=== PATIENT | female | born 1985 | race Caucasian/White ===

== ENCOUNTER 2016-12-10 12:53 | Emergency (ER) | payer OTHER ==
[~2016-12-10] VITALS: Ht 160 cm; Wt 102.9 kg
[~2016-12-10 12:53] MED LIST: AMPHETAMINE SAL20 MG PO; BACTRIM,SEPT1 TABLE1 PO; FLUOXETINE HCL20 M1 PO; FLUOXETINE HCL20 MG PO; FLUOXETINE HCL60 MG PO
[2016-12-10 14:48] LABS: ADD MIUA? NO; BILIRUBIN NEGATIVE; BLOOD NEGATIVE; COLOR YELLOW ((YELLOW)); GLUCOSE (STRIP) NEGATIVE; KETONES NEGATIVE; LEUKOCYTES NEGATIVE; NITRITE NEGATIVE; PROTEIN (STRIP) NEGATIVE; SPECIFIC GRAVITY 1.017 (1.000-1.030); UCUL ADDED? NO; UROBILINOGEN 0.2 MG/DL (0.2-1.0)
[2016-12-10 14:55] LABS: HEMATOCRIT 39.6 % (36.0-46.0); MCH 28.8 PG (29.0-34.0); MCHC 33.1 G/DL (30.0-36.0); MEAN PLAT.VOLUME 9.1 uM^3 (9.5-12.4); PLATELET COUNT 388 K/uL (156-360); RBC DIS.WIDTH-CV 13.1 % (11.8-14.6); RBC DIS.WIDTH-SD 40.9 % (39-53); RED BLOOD COUNT 4.55 M/uL (3.80-5.20); WHITE BLOOD COUNT 7.8 K/uL (4.1-10.2)
[2016-12-10 15:57] LABS: CHLORIDE 103 mEq/L (99-109); POTASSIUM 4.3 mEq/L (3.7-5.4); SODIUM 137 mEq/L (136-147)
[2016-12-10 15:59] LABS: GLUCOSE 87 mg/dL (70-99)
[2016-12-10 16:00] LABS: ANION GAP 7 MEQ/L (2-14)
[2016-12-10 16:01] LABS: TOTAL BILIRUBIN 0.3 mg/dL (0.0-1.0)
[2016-12-10 16:02] LABS: ALKALINE PHOSPHATASE 56 IU/L (3-129)
[2016-12-10 16:03] LABS: GFR ESTIMATE (CALCULATED) > 59 mL/min/
[2016-12-10 16:04] LABS: UREA NITROGEN (BUN) 11 mg/dL (9-23)
[2016-12-10 16:06] LABS: LIPASE 23 U/L (1.0-51.0)
[2016-12-10 16:12] LABS: QUANTITATIVE HCG < 4.0 MIU/ML
[2016-12-10] MEDS ORDERED: OMEPRAZOLE40 M1 PO (16:30)
[2016-12-10] MEDS ORDERED: ZOFRAN ODT4 MG PO (16:35)
[2016-12-10 16:42] VITALS: BP 137/93
== END 2016-12-10 16:43 | disposition home or self-care (01) ==
LOC: EME 12:53
DX: R10.11 Right upper quadrant pain (principal); F31.9 Bipolar disorder, unspecified; F41.9 Anxiety disorder, unspecified
CPT/HCPCS: 71020; 76705; 80053; 81003; 83690; 84702; 85027; 99281; 99283

== ENCOUNTER 2017-05-08 04:46 | Emergency (ER) | payer OTHER ==
[~2017-05-08] VITALS: Ht 165.1 cm; Wt 102.2 kg
[~2017-05-08 04:46] MED LIST changes: +OMEPRAZOLE40 M1 PO; +ZOFRAN ODT4 MG PO
[2017-05-08] MEDS ORDERED: PERCOCET 5/31 TABLET PO (05:19)
[2017-05-08] MEDS ORDERED: PEN-VEE K,VEET500 MG PO (05:23)
[2017-05-08 05:52] VITALS: BP 00/00
== END 2017-05-08 05:56 | disposition home or self-care (01) ==
LOC: EME 04:46
PROC: 3E0T3BZ Introduction of Anesthetic Agent into Peripheral Nerves and Plexi, Percutaneous Approach (ICD-10-PCS; principal; 2017-05-08)
DX: K08.89 Other specified disorders of teeth and supporting structures (principal); F41.9 Anxiety disorder, unspecified; F32.9 Major depressive disorder, single episode, unspecified; F31.9 Bipolar disorder, unspecified

== ENCOUNTER 2017-06-16 22:34 | Emergency (ER) | payer OTHER ==
[~2017-06-16] VITALS: Ht 162.6 cm; Wt 100.8 kg
[~2017-06-16 22:34] MED LIST changes: +PEN-VEE K,VEET500 MG PO; +PERCOCET 5/31 TABLET PO
[2017-06-16 23:04] LABS: HEMATOCRIT 42.1 % (36.0-46.0); HEMOGLOBIN 14.4 G/DL (11.9-15.5); MCH 29.6 PG (29.0-34.0); MCHC 34.2 G/DL (30.0-36.0); MCV 86.6 FL (83-99); PLATELET COUNT 496 K/uL (156-360); RBC DIS.WIDTH-CV 12.9 % (11.8-14.6); RBC DIS.WIDTH-SD 40.3 % (39-53); RED BLOOD COUNT 4.86 M/uL (3.80-5.20); WHITE BLOOD COUNT 13.9 K/uL (4.1-10.2)
[2017-06-16 23:13] LABS: ALBUMIN 4.2 g/dL (3.2-4.8); CHLORIDE 105 mEq/L (99-109); POTASSIUM 4.2 mEq/L (3.7-5.4); SODIUM 137 mEq/L (136-147)
[2017-06-16 23:16] LABS: GLUCOSE 93 mg/dL (70-99); TOTAL PROTEIN 7.9 g/dL (6.4-8.3)
[2017-06-16 23:18] LABS: TOTAL BILIRUBIN 0.2 mg/dL (0.0-1.0)
[2017-06-16 23:19] LABS: ALKALINE PHOSPHATASE 66 IU/L (3-129); CREATININE 0.7 mg/dL (0.6-1.3); GFR ESTIMATE (CALCULATED) > 59 mL/min/
[2017-06-16 23:20] LABS: UREA NITROGEN (BUN) 12 mg/dL (9-23)
[2017-06-16 23:21] LABS: AST (GOT) 14 IU/L (2-34)
[2017-06-16 23:22] LABS: ALT (GPT) 15 IU/L (3-49)
[2017-06-16 23:29] LABS: QUANTITATIVE HCG < 4.0 MIU/ML
[2017-06-17 00:42] LABS: APPEARANCE CLEAR ((CLEAR)); BILIRUBIN NEGATIVE; BLOOD NEGATIVE; COLOR YELLOW ((YELLOW)); GLUCOSE (STRIP) NEGATIVE; KETONES NEGATIVE; LEUKOCYTES NEGATIVE; NITRITE NEGATIVE; PROTEIN (STRIP) NEGATIVE; SPECIFIC GRAVITY 1.026 (1.000-1.030); UCUL ADDED? NO; UROBILINOGEN 0.2 MG/DL (0.2-1.0)
[2017-06-17 00:50] LABS: DIRECT BILIRUBIN 0.1 mg/dL (0.0-0.3)
[2017-06-17 00:51] LABS: LIPASE 18 U/L (1.0-51.0)
[2017-06-17] MEDS ORDERED: HEARTBURN RELI150 M1 PO (01:22)
[2017-06-17] MEDS ORDERED: ZOFRAN4 MG PO (01:29)
[2017-06-17 01:50] VITALS: BP 141/97
== END 2017-06-17 01:51 | disposition home or self-care (01) ==
LOC: EME 22:34
DX: R10.13 Epigastric pain (principal); F32.9 Major depressive disorder, single episode, unspecified; F41.9 Anxiety disorder, unspecified
CPT/HCPCS: 80053; 81003; 82248; 83690; 84702; 85027; 99281; 99285